=== PATIENT | male | born 2000 ===

== ENCOUNTER 2018-01-06 15:17 | Outpatient (CLI) | payer OTHER ==
--- NOTE | 2018-01-06 15:53 | RAD ---
TWO VIEWS RIGHT KNEE: Comparison: None. History: Right knee pain for two months. Patient injured the knee playing basketball. FINDINGS: Two views of the right knee shows no evidence of acute fracture or dislocation. No knee effusion is s een. No degenerative changes are seen. IMPRESSION: Unremarkable exam. POS: [facility]
== END 2018-01-06 15:18 | disposition home or self-care (01) ==
LOC: SCSRAD 15:17
PROVIDERS: ATTEND Family Medicine
DX: M23.91 Unspecified internal derangement of right knee (principal)

== ENCOUNTER 2018-01-19 14:25 | Outpatient (CLI) | payer OTHER ==
--- NOTE | 2018-01-19 15:52 | MRI ---
RIGHT KNEE MRI WITHOUT IV CONTRAST: Date: 01/19/18 HISTORY: 17-year-old female with history of right knee pain following trauma, hit another player playing [employer] several months ago, with persistent knee pain. FINDINGS: Minimal abnormal marrow signal involving the anterior medial aspect of the medial femoral condyle, ce rtainly consistent with some residual bone contusion. No abnormal joint effusion. Medial and lateral menisci, anterior and posterior cruciate ligaments, collateral ligament complexes, and quadriceps and patellar tendons and extensor mechanism unremarkable. No acute osteochondral defect. IMPRESSION: Minimal abnormal marrow signal involving the anterior medial aspect of the medial femoral condyle, ev idence for bone contusion. No evidence for other significant acute internal derangement. POS: [facility]
== END 2018-01-19 14:26 | disposition home or self-care (01) ==
LOC: SCSMRI 14:25
PROVIDERS: ATTEND Family Medicine
DX: M23.91 Unspecified internal derangement of right knee (principal)